=== PATIENT | male | born 1970 | race Caucasian/White ===

== ENCOUNTER 2023-02-23 10:28 | Emergency (ER) | payer SELFPAY ==
--- OUTSIDE RECORDS SUMMARY | 2023-02-23 10:30 | XMS REPORT | Continuity of Care Document ---
:1970 Author Organization [facility] t Address [address] [facility] [address] [place] [address] Care Team Providers Name Role Phone Unavailable Unavailable Unavailable Problems This patient has no known problems. Allergies, Adverse Reactions, Alerts This patient has no known allergies or adverse reactions. Medications This patient has no known medications. Procedures This patient has no known procedures. Encounters Start End Encounter Admission Attending Care Care Encounter Source Date/Time Date/Time Type Type Clinicians Facility Department ID 2023-02-12 2023-02-12 Outpatient [facility] [id number] Jose Alfredo 15:33:03 15:33:03 [id number] F Denis 2023-02-11 2023-02-11 Outpatient [facility] [id number] Jose Alfredo 09:05:11 09:05:11 [id number] F Denis Results Test Description Test Time Test Comments Results Result Comments Source COMPREHENSIVE METABOLIC PANEL 2023-02-12 06:35:02 Test Item Value Reference Range Interpretation Comme nts GLUCOSE (test code = 2217) 100 MG/DL 70-99 H BUN (test code = 2208) 16 MG/DL 6-20 CREATININE (test code = 2214) 0.90 MG/DL 0.80-1.40 eGFR (2020 CKD-EPI) (test code = 32063) 101 ML/MIN/1.73 >60 CALC BUN/CREAT (test code = 2235) 18 RATIO 6-28 SODIUM (test code = 2231) 139 MEQ/L 133-146 POTASSIUM (test code = 2228) 5.3 MEQ/L 3.5-5.4 CHLORIDE (test code = 2215) 101 MEQ/L 95-107 CARBON DIOXIDE (test code = 2206) 26 MEQ/L 19-31 CALCIUM (test code = 2209) 10.3 MG/DL 8.5-10.5 PROTEIN, TOTAL (test code = 2229) 7.5 G/DL 6.1-8.3 ALBUMIN (test code = 2201) 4.8 G/DL 3.5-5.2 CALC GLOBULIN (test code = 2240) 2.7 G/DL 1.9-3.7 CALC A/G RATIO (test code = 2234) 1.8 RATIO 1.0-2.6 BILIRUBIN, TOTAL (test code = 7) 0.2 MG/DL <=1.2 ALKALINE PHOSPHATASE (test code = 2204) 89 U/L 40-121 AST (test code = 2218) 16 U/L 9-50 ALT (test code = 2219) 13 U/L 5-50 LIPID [id number] 06:35:02 Test Item Value Reference Range Interpretation Comments CHOLESTEROL (test 207 MG/DL <200 H code = 2210) TRIGLYCERIDES (test 116 MG/DL <150 code = 2232) HDL CHOLESTEROL (test 51 MG/DL >39 code = 2220) CALC LDL CHOL (test 134 MG/DL <100 H NOTE: C ALCULATED LDL code = 2237) IS BASED ON LILY-CEDENO METHOD WHICHINCLUDES ADJUSTABLE TRIGLYCERIDE:VL DL CHOLESTEROL RAT IO.THIS FACTOR VARIES B Y MEASURED TRIGLY CERIDE AND NON-HDLCHOL ESTEROL CONCENTRATIONS WITH INCREASED CALCU LATED LDL SEENIN HIGH ER TRIGLYCERIDE OR LOWER NON-HDL SPECIME NS. FOR MOREINFORMATION , SEE CLIENT ANNOUNCE MENT AT [email or web address] RISK RATIO LDL/HDL 2.63 RATIO <3.55 (test code = 223) HEMOGLOBIN [id number] 05:36:27 Test Item Value Reference Range Interpretation Comments HEMOGLOBIN A1c (test 5.5 % 4.2-5.6 UNLESS OTHERWISE code = 18202) INDICATED, ALL TESTING PERFORMED AT [facility] [employer] [address] [facility] [place] [address] SHAHRAM LARSON DIRECTOR: Laura GLASS ERIKA NUMBER [id number] CAP ACCREDITATION N O. [id number] CBC W/AUTO DIFF WITH [id number] 05:06:30 Test Item Value Reference Range Interpretation Comments WBC (test code = 8.7 K/UL 3.5-11.0 1001) RBC (test code = 5.52 M/UL 4.50-6.10 1002) HEMOGLOBIN (test code 17.8 G/DL 13.5-17.0 H = 1003) HEMATOCRIT (test code 52.6 % 40.0-51.0 H = 1004) MCV (test code = 95.3 fL 80.0-99.0 1005) MCH (test code = 32.2 PG 25.0-33.0 1006) MCHC (test code = 33.8 G/DL 31.0-36.0 1007) RDW (test code = 12.0 % 11.5-15.0 1038) NEUTROPHILS (test 66.0 % code = 1008) LYMPHOCYTES (test 22.3 % code = 1010) MONOCYTES (test code 6.3 % = 1011) EOSINOPHILS (test 3.7 % code = 1012) BASOPHILS (test code 1.0 % = 1013) IMMATURE GRANULOCYTES 0.7 % (test code = 1036) NUCLEATED RBCS (test 0.0 /100 WBC'S See_Comment [Aut omated code = 1065) message] The sy stem which generated this result transmitted reference range : 0.0. The refere nce range was not u sed to interpret th is result as normal/abnormal . PLATELET COUNT (test 358 K/UL 130-400 code = 1015) ABSOLUTE NEUTROPHILS 5.75 K/UL 1.50-7.50 (test code = 1066) ABSOLUTE LYMPHOCYTES 1.94 K/UL 1.00-4.00 (test code = 1067) ABSOLUTE MONOCYTES 0.55 K/UL 0.20-1.00 (test code = 1068) ABSOLUTE EOSINOPHILS 0.32 K/UL 0.00-0.50 (test code = 1040) ABSOLUTE BASOPHILS 0.09 K/UL 0.00-0.20 (test code = 1069) ABS IMMATURE 0.06 K/UL 0.00-0.10 GRANULOCYTES (test code = 1020) ABS NUCLEATED RBCS 0.00 K/UL 0.00-0.11 (test code = 80750)
[2023-02-23 11:47] LABS: Absolute Lymphocytes (CBC) 2.2 K/uL (0.7-4.9); Lymphocytes % 19.1 % (15.3-44.8); MCV 95.3 fL (80-100); MPV 7.6 fL (7.6-11.3); Platelets 281 thou/uL (152-406); RBC Red Blood Cell Count 5.46 M/uL (4.33-5.43)
[2023-02-23] MEDS ORDERED: KETOROLAC 30 MG/ML INJ ONE (11:55)
[2023-02-23] MEDS ORDERED: NA CHLORIDE 0.9% 1,000 ML ONE ×2 (11:55→12:18)
[2023-02-23] MEDS ORDERED: METOCLOPRAMIDE 10 MG/2mL INJ ONE (11:55)
[2023-02-23] MEDS ORDERED: DIPHENHYDRAMINE 50 MG/ML VIAL ONE (11:55)
[2023-02-23 12:05] LABS: Albumin 3.6 g/dL (3.4-5.0); Bilirubin Total 0.6 mg/dL (0.2-1.0); Potassium 4.2 mEq/L (3.5-5.1)
[2023-02-23 12:14] LABS: Blood Morphology Comment NOT SEEN (NOT SEEN); Platelet Estimate ADEQ; White Blood Cell Scan OK (OK)
[2023-02-23] MEDS ORDERED: CYANOCOBALAMIN 1,000 MCG TAB ONE (12:26)
[2023-02-23] MEDS ORDERED: CYANOCOBALAMIN 1,000 MCG TAB PO ONE (13:00)
--- NOTE | 2023-02-23 13:13 | RAD REPORT ---
EXAM DESCRIPTION: CT - Head Brain Wo Cont - 02/23/2023 1:04 pm CLINICAL HISTORY: Dizziness COMPARISON: None TECHNIQUE: Computed axial tomography of the head was obtained. IV contrast was not requested. All CT scans are performed using dose optimization technique as appropriate and may include automated exposure control or mA/KV adjustment according to patient size. FINDINGS: An intracranial bleed is not seen The ventricles are normal in caliber No extra-axial fluid collection is noted. 3.5 centimeters low-density area left cerebellar hemisphere extending into the vermis Fluid within the sinuses/ mastoids is not seen. IMPRESSION: 3.5 centimeter low-density area left cerebellar hemisphere extending into the cerebellar vermis may represent a subacute infarction MRI of the brain is recommended for further evaluation
--- NOTE | 2023-02-23 14:28 | EDPHYS ---
Physician Documentation [facility] Name: Nima Aguilar Age: 52 yrs Sex: Male : 1970 Arrival Date: 02/23/2023 Time: 10:28 Bed 8 Private MD: ED Physician Chilo Murdock HPI: 02/23 10:50 This 52 yrs old Male presents to ER via Ambulatory with complaints of Dizziness, ec2 Headache, Nausea. 10:50 Patient arrives today due to concern for nausea and vomiting with associated abdominal ec2 pain. States for the past week has been having decreased p.o. intake, states he has been able to keep things down however still having headache. Patient states he has not taken any medications at all. Patient reports no medical problems at all.. Historical: - Allergies: 10:47 No Known Allergies; hb - PMHx: 11:50 Hypertensive disorder; Hypercholesterolemia; rs5 - PSHx: 11:50 None; rs5 - Immunization history:: Adult Immunizations unknown. - Social history:: Smoking status: Patient denies any tobacco usage or history of. ROS: 10:50 Constitutional: As per HPI ec2 Exam: 10:50 Constitutional: GEN: NAD Head: atraumatic Eyes: EOMI Ears: External ears are ec2 normal. CV: regular rate LUNGS: no respiratory distress ABD: non-distended, soft, nontender, no guarding, not rigid SKIN: no evidence of rashes MSK: no evidence of trauma NEURO: moves all extremities equally Vital Signs: 10:44 BP 124 / 91; Pulse 75; Resp 16; Temp 98.1(TE); Pulse Ox 100% on R/A; Weight 89.36 kg; hb Height 5 ft. 8 in. ; Pain 7/10; 11:50 BP 136 / 94; Pulse 72; Resp 17; Temp 98; Pulse Ox 99% on R/A; rs5 12:55 BP 138 / 91; Pulse 74; Resp 18; Pulse Ox 99% on R/A; rs5 14:10 BP 155 / 95; Pulse 75; Resp 16; Pulse Ox 99% on R/A; rs5 15:10 BP 144 / 93; Pulse 70; Resp 17; Pulse Ox 99% on R/A; rs5 10:44 Body Mass Index 29.95 (89.36 kg, 172.72 cm) hb 10:44 Pain Scale: Adult hb MDM: 10:38 Patient medically screened. ec2 10:50 ED course: Patient arrives today due to concern for abdominal pain with associated ec2 nausea and vomiting and headache. Examination remarkable for well-appearing nontoxic individual is otherwise in no acute distress. Will check lab work, give the patient crystalloid, Reglan, Benadryl and Toradol and reassess the patient's symptoms. Currently considering gastroenteritis, will suspicion for process such as meningitis/encephalitis, low suspicion for acute surgical abdomen.. 12:00 ED course: Patient other dozier express some dizziness and nursing however did not ec2 initially relate this to me. I reexamined the patient, states that he had 2 bouts of dizziness, one several months ago and 1 last week, states that he felt very dizzy, very violently nauseous and vomiting states that positional head movements was worsening the symptoms. Patient does report significant alcohol abuse history. States he no longer currently drinks. His neurologic exam has no pronator drift, he does have direction changing nystagmus, he also describes a sensation of feeling that his eyes are catching up. Otherwise strength and sensation intact throughout. I will obtain CT scan of the head to evaluate for intracranial pathology such as masses, stroke. Patient ultimately outside any actionable window for tPA or clot retrieval.. 12:18 ED course: Patient's lab work is remarkable for reassuring blood counts, metabolic ec2 profile is overall reassuring, lipase within normal ranges. . 14:06 ED course: CT of the head shows a 3.5 cm low-density area in the cerebellum, left which ec2 may represent a subacute infarct. This would be consistent with the patient's dizziness as well as his direction changing nystagmus. I will work on transferring the patient due to capacity issues here in our hospital. I discussed the results with the patient, he expressed understanding and he agreed to transfer. . 14:26 ED course: I discussed case with neurology at [place] Dr. Carlin who agrees accept ec2 patient for admission.. 14:27 Data reviewed: vital signs. ec2 02/23 10:50 Order name: CBC with Diff; Complete Time: 12:18 ec2 02/23 10:50 Order name: CMP; Complete Time: 12:18 ec2 02/23 10:50 Order name: Lipase; Complete Time: 12:18 ec2 02/23 12:14 Order name: CBC Smear Scan; Complete Time: 12:18 EDMS 02/23 11:59 Order name: CT Head Brain wo Cont; Complete Time: 13:45 ec2 02/23 10:50 Order name: IV Saline Lock; Complete Time: 11:55 ec2 02/23 10:50 Order name: Labs collected and sent; Complete Time: 11:55 ec2 Administered Medications: 11:50 Drug: NS 0.9% IV 1000 ml IV at 1 bolus Per protocol; 1000 mL bolus Route: IV; Rate: 1 rs5 bolus; Site: left antecubital; 12:10 Follow up: Response: No adverse reaction rs5 11:50 Drug: TORadol - Ketorolac IVP 15 mg IVP once Route: IVP; Site: left antecubital; rs5 12:20 Follow up: Response: No adverse reaction; Pain is decreased rs5 11:50 Drug: metoCLOPramide IVP 10 mg IVP once; over 1 to 2 minutes Route: IVP; Site: left rs5 antecubital; 12:05 Follow up: Response: No adverse reaction; Nausea is decreased rs5 11:50 Drug: diphenhydrAMINE IVP 25 mg IVP once Route: IVP; Site: right antecubital; rs5 12:10 Follow up: Response: No adverse reaction rs5 12:13 Drug: NS 0.9% IV 1000 ml IV at 1 bolus Per protocol; 1000 mL bolus Route: IV; Rate: 1 rs5 bolus; Site: left antecubital; 12:30 Follow up: Response: No adverse reaction rs5 12:13 Drug: Cyanocobalamin PO 500 mcg PO once Route: PO; rs5 12:37 Follow up: Response: No adverse reaction rs5 Disposition Summary: 02/23/23 14:27 Transfer Ordered Notes: Reason: Higher level of care ec2 Condition: Stable ec2 Problem: new ec2 Symptoms: are unchanged ec2 Transfer Location: [facility](02/23/23 14:29) ec2 Accepting Physician: Dr. Carlin [facility](02/23/23 15:20) aa5 Diagnosis - Cerebellar stroke syndrome ec2 Forms: - Medication Reconciliation Form ec2 - SBAR form ec2 Signatures: Dispatcher [employer] EDMary Huang, RN RN aa5 Lesley Peterson RN RN Singh Kwong RN RN rs5 Chilo Murdock MD MD ec2 Corrections: (The following items were deleted from the chart) 11:59 11:50 PSHx: Appendectomy; rs5 rs5 14:06 13:45 Head Brain Wo Cont+CT.RAD.BRZ reviewed. ec2 ec2 14:09 12:00 ED course: Patient other dozier express some dizziness and nursing however did not ec2 initially relate this to me. I reexamined the patient, states that he had 2 bouts of dizziness, one several months ago and 1 last week, states that he felt very dizzy, very violently nauseous and vomiting states that positional head movements was worsening the symptoms. Patient does report significant alcohol abuse history. States he no longer currently drinks. I will obtain CT scan of the head to evaluate for intracranial pathology such as masses, list patient for stroke given reassuring neurologic exam, cranial nerves II through XII intact, strength intact in all 4 extremities, negative pronator drift.. ec2 14:29 14:27 Dr. Carlin [place] ec2 ec2 14:29 14:27 Other Acute Care Facility ec2 ec2 15:20 14:29 Dr. Carlin, [facility] ec2 aa5
--- NOTE | 2023-02-23 14:28 | ER ---
Nurse's Notes [facility] Name: Nima Aguilar Age: 52 yrs Sex: Male : 1970 Arrival Date: 02/23/2023 Time: 10:28 Bed 8 Private MD: Diagnosis: Cerebellar stroke syndrome Presentation: 02/23 10:44 Chief complaint: Sudden onset N/V, headache, and dizziness that started 5 days ago. hb Coronavirus screen: At this time, the client does not indicate any symptoms associated with coronavirus-19. Ebola Screen: No symptoms or risks identified at this time. Initial Sepsis Screen: Does the patient meet any 2 criteria? No. Patient's initial sepsis screen is negative. Does the patient have a suspected source of infection? No. Patient's initial sepsis screen is negative. Risk Assessment: Do you want to hurt yourself or someone else? Patient reports no desire to harm self or others. Onset of symptoms was February 18, 2023. 10:44 Method Of Arrival: Ambulatory 10:44 Acuity: LEONARD 3 hb Triage Assessment: 11:50 Pain: Also complains of. rs5 11:50 Headache History: The patient has had previous headaches and this one is similar to rs5 previous episodes. General: Appears in no apparent distress. comfortable, Behavior is calm, cooperative. Pain: Complains of pain in head Pain does not radiate. Pain currently is 5 out of 10 on a pain scale. Quality of pain is described as aching, Pain began five days ago Is continuous. Historical: - Allergies: 10:47 No Known Allergies; hb - PMHx: 11:50 Hypertensive disorder; Hypercholesterolemia; rs5 - PSHx: 11:50 None; rs5 - Immunization history:: Adult Immunizations unknown. - Social history:: Smoking status: Patient denies any tobacco usage or history of. Screenin:50 [facility] ED Fall Risk Assessment (Adult) History of falling in the last 3 months, rs5 including since admission No falls in past 3 months (0 pts) Confusion or Disorientation No (0 pts) Intoxicated or Sedated No (0 pts) Impaired Gait No (0 pts) Mobility Assist Device Used No (0 pt) Altered Elimination No (0 pt) Score/Fall Risk Level 0 - 2 = Low Risk Oriented to surroundings, Maintained a safe environment. Abuse screen: Denies threats or abuse. Nutritional screening: No deficits noted. Tuberculosis screening: No symptoms or risk factors identified. Assessment: 11:50 Reassessment: Pt arrived in room . rs5 11:50 General: Appears in no apparent distress. uncomfortable, Behavior is calm, cooperative. rs5 Pain: Complains of pain in head Pain does not radiate. Pain currently is 5 out of 10 on a pain scale. Quality of pain is described as aching, Pain began 2-3 days ago. Is continuous. Neuro: Level of Consciousness is awake, alert, obeys commands, Oriented to person, place, time, situation, Reports headache frontal area. 11:50 Cardiovascular: Heart tones S1 S2 present Rhythm is regular. Respiratory: Airway is rs5 patent Respiratory effort is even, unlabored, Respiratory pattern is regular, symmetrical, Breath sounds are clear bilaterally. GI: Abdomen is round non-distended, Bowel sounds present X 4 quads. Abd is soft and non tender X 4 quads. Reports nausea. : No signs and/or symptoms were reported regarding the genitourinary system. EENT: No signs and/or symptoms were reported regarding the EENT system. Derm: Skin is intact, Skin is pink, warm \T\ dry. Musculoskeletal: Range of motion: intact in all extremities. 12:20 Pain: Denies pain. rs5 12:20 Reassessment: Patient states feeling better. Respiratory: Respiratory effort is even, rs5 unlabored, Respiratory pattern is regular, symmetrical. GI: Patient currently denies nausea, vomiting. 13:15 Reassessment: No changes from previously documented assessment. rs5 14:13 Reassessment: Patient and/or family updated on plan of care and expected duration. Pain rs5 level reassessed. Patient is alert, oriented x 3, equal unlabored respirations, skin warm/dry/pink. 15:00 Reassessment: No changes from previously documented assessment. Patient denies pain at rs5 this time. 15:00 Neuro: Denies dizziness. GI: Patient currently denies nausea, vomiting. rs5 Vital Signs: 10:44 BP 124 / 91; Pulse 75; Resp 16; Temp 98.1(TE); Pulse Ox 100% on R/A; Weight 89.36 kg; hb Height 5 ft. 8 in. ; Pain 7/10; 11:50 BP 136 / 94; Pulse 72; Resp 17; Temp 98; Pulse Ox 99% on R/A; rs5 12:55 BP 138 / 91; Pulse 74; Resp 18; Pulse Ox 99% on R/A; rs5 14:10 BP 155 / 95; Pulse 75; Resp 16; Pulse Ox 99% on R/A; rs5 15:10 BP 144 / 93; Pulse 70; Resp 17; Pulse Ox 99% on R/A; rs5 10:44 Body Mass Index 29.95 (89.36 kg, 172.72 cm) hb 10:44 Pain Scale: Adult hb ED Course: 10:31 Patient arrived in ED. mg5 10:38 Chilo Murdock MD is Attending Physician. ec2 10:47 Triage completed. hb 10:47 Arm band placed on. hb 11:50 Patient has correct armband on for positive identification. Bed in low position. Call rs5 light in reach. Side rails up X2. 12:02 Singh Kwong, KIMI is Primary Nurse. rs5 13:06 CT Head Brain wo Cont In Process Unspecified. EDMS 14:13 initiated a transfer with Kenny Arevalo from the [email or web address] Transfer Center at the request eb of the patient. 14:26 administrative approval given by Harley Arevalo/ patient has been accepted to [address] room 1130/ Dr. Dickson Schrader has accepted the patient in transfer/ report to be called to [phone]. 14:46 [facility] called for transport. eb 15:15 No provider procedures requiring assistance completed. Patient transferred, IV remains rs5 in place. Administered Medications: 11:50 Drug: NS 0.9% IV 1000 ml IV at 1 bolus Per protocol; 1000 mL bolus Route: IV; Rate: 1 rs5 bolus; Site: left antecubital; 12:10 Follow up: Response: No adverse reaction rs5 11:50 Drug: TORadol - Ketorolac IVP 15 mg IVP once Route: IVP; Site: left antecubital; rs5 12:20 Follow up: Response: No adverse reaction; Pain is decreased rs5 11:50 Drug: metoCLOPramide IVP 10 mg IVP once; over 1 to 2 minutes Route: IVP; Site: left rs5 antecubital; 12:05 Follow up: Response: No adverse reaction; Nausea is decreased rs5 11:50 Drug: diphenhydrAMINE IVP 25 mg IVP once Route: IVP; Site: right antecubital; rs5 12:10 Follow up: Response: No adverse reaction rs5 12:13 Drug: NS 0.9% IV 1000 ml IV at 1 bolus Per protocol; 1000 mL bolus Route: IV; Rate: 1 rs5 bolus; Site: left antecubital; 12:30 Follow up: Response: No adverse reaction rs5 12:13 Drug: Cyanocobalamin PO 500 mcg PO once Route: PO; rs5 12:37 Follow up: Response: No adverse reaction rs5 Medication: 11:50 VIS not applicable for this client. rs5 Outcome: 14:27 ER care complete, transfer ordered by . ec2 15:15 Transferred by ground EMS to [facility], Transfer form rs5 completed. X-rays sent w/ patient. 15:15 Condition: stable 15:15 Discharge instructions given to patient, Instructed on the need for transfer, Demonstrated understanding of instructions, follow-up care, 15:20 Patient left the ED. aa5 Signatures: Dispatcher [employer] Mary Mtz RN RN aa5 Lesley Peterson RN RN Saumya Terry Singh Kwong RN RN rs5 Ariadna Wells mg5 Chilo Murdock MD MD ec2 Corrections: (The following items were deleted from the chart) 10:48 10:44 Chief complaint: Sudden onset N/V, headache, and dizziness x 5 days. hb hb 10:48 10:44 BP 124 / 91; Pulse 75bpm; Resp 16bpm; Pulse Ox 100% RA; Temp 98.1F Temporal; hb 89.36 kg; Height 5 ft. 8 in.; BMI: 29.9; hb 11:59 11:50 PSHx: Appendectomy; rs5 rs5 12:36 12:36 Response: No adverse reaction; Nausea is decreased rs5 rs5 14:58 14:13 initiated a transfer with Kenny Arevalo from the [facility] [[email or web address] Transfer Center [facility]
[2023-02-23 15:27] VITALS: TEMP 98; O2SAT 99
[2023-02-23 15:31] VITALS: BP 155/95
== END 2023-02-23 15:20 | disposition short-term general hospital (02) ==
LOC: ER 10:28
DX: G46.4 Cerebellar stroke syndrome (principal)
CPT/HCPCS: 36415; 70450; 80053; 83690; 85025; 99285; J1200; J2765; J7030